=== PATIENT | male | born 1950 | race Caucasian/White ===

== ENCOUNTER → 2016-09-29 | Outpatient (CLI) | payer OTHER ==
[~2016-09-29] MED LIST: ACIDOPHILUS1 EAC4 PO; AMLODIPINE BESYL5 MG PO; ASPIR 8181 M1 PO; BENICAR20 MG PO; CLOPIDOGREL75 MG PO; DURICEF500 MG PO; LIVALO2 MG PO; MAGNESIUM OXID500 MG PO; PANTOPRAZOLE SO40 MG PO; VALSARTAN160 MG PO
== END | disposition home or self-care (01) ==
LOC: AMB 13:20
DX: D17.21 Benign lipomatous neoplasm of skin and subcutaneous tissue of right arm (principal); R22.9 Localized swelling, mass and lump, unspecified
CPT/HCPCS: 88304; 88305